=== PATIENT | female | born 1975 | race Hispanic/Latino ===

== ENCOUNTER 2019-09-26 12:51 | Observation (INO) | payer BC, OTHER ==
[~2019-09-26] VITALS: Ht 172.7 cm; Wt 115.2 kg
[2019-09-26 13:35] LABS: BASOPHILS % (AUTO) 0.3 % (0.0-5.0); EOSINOPHILS % (AUTO) 0.9 % (0.0-8.0); HEMATOCRIT 21.2 % (36-48); LYMPHOCYTES % (AUTO) 23.3 % (21.0-51.0); MEAN CORPUSCULAR HEMOGLOBIN 27.9 pg (27.0-33.0); MEAN CORPUSCULAR HGB CONC 30.2 g/dL (32.0-36.0); MEAN CORPUSCULAR VOLUME 92.6 fL (79-99); MONOCYTES % (AUTO) 9.2 % (3.0-13.0); NEUTROPHILS % (AUTO) 65.2 % (40.0-77.0); NUCLEATED RED BLOOD CELLS 2.4 % (0.0-0.19); PLATELET COUNT (AUTO) 143 K/uL (130-400); RED BLOOD CELL COUNT(AUTO) 2.29 MIL/uL (4.00-5.50); RED CELL DISTRIBUTION WIDTH 16.9 % (11.0-15.5)
[2019-09-26 13:42] LABS: CREATININE 0.7 mg/dL (0.5-1.5); POTASSIUM 3.3 mmol/L (3.5-5.1)
[2019-09-26 13:46] LABS: ALBUMIN 3.4 g/dL (3.5-5.0); BILIRUBIN,TOTAL 0.5 mg/dL (0.2-1.0)
[2019-09-26 13:56] LABS: INR 1.08 (0.85-1.15); PARTIAL THROMBOPLASTIN TIME 23.3 SEC (26.3-35.5); PROTHROMBIN TIME 11.3 SEC (9.6-11.6)
[2019-09-26 14:18] LABS: APPEARANCE,URINE CLOUDY (CLEAR); BILIRUBIN,URINE SMALL (NEGATIVE); COLOR,URINE RED (YELLOW); GLUCOSE, URINE (UA) >=1000 mg/dL (NEGATIVE); KETONES,URINE >=80 mg/dL (NEGATIVE); LEUKOCYTE ESTERASE ,URINE NEGATIVE (NEGATIVE); NITRATE,URINE POSITIVE (NEGATIVE); OCCULT BLOOD,URINE LARGE (NEGATIVE); PH,URINE 5.5 (5.0-8.0); PROTEIN,URINE >=300 mg/dL (NEGATIVE)
[2019-09-26] MEDS ORDERED: SODIUM CHLORIDE 0.9% 1000ML 1,000 ML IV ONE (14:19)
[2019-09-26 14:37] LABS: HCG,QUAL RESULT NEGATIVE (NEGATIVE)
[2019-09-26 14:40] LABS: BACTERIA,URINE Few /HPF (None Seen); MUCUS,URINE Few LPF (None Seen); RBC,URINE >100 /HPF (0-1); SQUAMOUS EPITHELIAL CELL,UR 0-2 /HPF (0-2)
[2019-09-26 16:47] LABS: HEMOGLOBIN A1C 5.6 % (4.0-6.0)
[2019-09-26] MEDS ORDERED: DIPHENHYDRAMINE HCL 25 MG CAPSULE PO SCH (17:00)
[2019-09-26] MEDS ORDERED: ACETAMINOPHEN EXTRA STRENGTH 500 MG TABLET PO SCH (17:00)
[2019-09-26 17:54] VITALS: BP 137/73
[2019-09-26] MEDS ORDERED: SODIUM CHLORIDE 0.9% 1000ML 1,000 ML IV SCH (18:00)
[2019-09-26] MEDS ORDERED: TRANEXAMIC ACID 1000MG/10ML IJ SCH (18:00)
[2019-09-26] MEDS ORDERED: FLU VACC QS2019-20 36MOS UP/PF 60 MCG/0.5 ML ML IM SCH (18:15)
[2019-09-26] MEDS ORDERED: TRANEXAMIC ACID 1,000 MG in SODIUM CHLORIDE 0.9% 50 ML IV SCH (18:30)
[2019-09-26] MEDS ORDERED: SITA1TAB6 PO (18:50)
[2019-09-26] MEDS ORDERED: PIOG45TA64 PO (18:50)
[2019-09-26] MEDS ORDERED: LISI-613 PO (18:50)
[2019-09-26] MEDS ORDERED: INSU100I21 SQ (18:50)
[2019-09-26] MEDS ORDERED: LIRA0.6P SQ (18:50)
[2019-09-26] MEDS ORDERED: LEVO125T11 PO (18:50)
[2019-09-26] MEDS ORDERED: PROG200C11 PO (18:50)
[2019-09-26] MEDS ORDERED: ATOR40TA69 PO (18:50)
[2019-09-26] MEDS ORDERED: ERGO500014 PO (18:50)
--- NOTE | 2019-09-26 19:20 | NUR ---
Patient; Patient lying in bed when received with IV of NS infusing at 100 ml per hour, Tranexamic Acid infusing IVPB. Plan of care discussed with patient NPO after midnight informed not to eat or drink after midnight. Blood Transfusion of 4 units PRBC after 2 units H & H will be check. Need to check Vaginal bleeding. Patient verbalizes understanding.
[2019-09-26 19:33] VITALS: BP 115/70
[2019-09-26 23:27] VITALS: BP 112/65
[2019-09-27 02:49] LABS: HEMATOCRIT 23.4 % (36-48)
[2019-09-27 03:42] VITALS: BP 110/65
--- NOTE | 2019-09-27 07:25 | NUR ---
HORTENSIA ANAYA ROUNDING ON PATIENT. POC DISCUSSED WITH PATIENT. PATIENT TO CONTINUE WITH HOME MEDICATION PROVERA. QUESTIONS INVITED AND ANSWERED. PATIENT VOICED UNDERSTANDING.
[2019-09-27 07:59] VITALS: BP 111/56
--- NOTE | 2019-09-27 08:53 | NUR ---
CALLED OFFICE FOR RECORDS PER HORTENSIA ANAYA.
[2019-09-27 10:14] LABS: BASOPHILS % (AUTO) 0.3 % (0.0-5.0); EOSINOPHILS % (AUTO) 1.3 % (0.0-8.0); HEMATOCRIT 32.5 % (36-48); LYMPHOCYTES % (AUTO) 28.5 % (21.0-51.0); MEAN CORPUSCULAR HEMOGLOBIN 27.9 pg (27.0-33.0); MEAN CORPUSCULAR HGB CONC 31.7 g/dL (32.0-36.0); MEAN CORPUSCULAR VOLUME 88.1 fL (79-99); MONOCYTES % (AUTO) 10.5 % (3.0-13.0); NEUTROPHILS % (AUTO) 58.6 % (40.0-77.0); NUCLEATED RED BLOOD CELLS 2.3 % (0.0-0.19); PLATELET COUNT (AUTO) 123 K/uL (130-400); RED BLOOD CELL COUNT(AUTO) 3.69 MIL/uL (4.00-5.50); RED CELL DISTRIBUTION WIDTH 16.6 % (11.0-15.5); WHITE BLOOD COUNT (AUTO) 6.1 K/uL (4.8-10.8)
[2019-09-27 11:30] VITALS: BP 121/72
--- NOTE | 2019-09-27 12:00 | NUR ---
DR. DIAS ROUNDING ON PATIENT. POC DISCUSSED WITH PATIENT AND AT BEDSIDE. QUESTIONS INVITED AND ANSWERED. PATIENT OKAY TO DISCHARGE AND FOLLOW UP WITH PATIENT NEXT WEEK.
--- NOTE | 2019-09-27 14:05 | NUR ---
PATIENT LEFT UNIT VIA WHEELCHAIR. PERSONAL VEHICLE USED FOR TRANSPORTATION ACCOMPANIED BY SIGNIFICANT OTHER. NO COMPLAINTS OR CONCERNS ADDRESSED FOR PATIENT ON DISCHARGE.
== END 2019-09-27 14:05 | disposition home or self-care (01) ==
LOC: EDH 12:51 → EDHIP 16:30 → WSH 17:45
PROVIDERS: ADMIT Obstetrics & Gynecology; ATTEND Obstetrics & Gynecology
DX: N93.9 Abnormal uterine and vaginal bleeding, unspecified (principal); Z23 Encounter for immunization; D64.9 Anemia, unspecified; E11.9 Type 2 diabetes mellitus without complications
CPT/HCPCS: 36415 ×2; 36430 ×2; 76856; 80053; 81001; 81025; 82550; 83036; 84484; 85014; 85018; 85025 ×2; 85610; 85730; 86850; 86900; 86901; 86922 ×2; 87077; 87088; 87186; 90471; 93005; 96365; 99285; G0008; G0378 ×9; J3490; J7030 ×2; P9016 ×4; Q0163; Q2035